=== PATIENT | male | born 2005 | race Caucasian/White ===

== ENCOUNTER 2024-03-23 19:47 | Emergency (ER) | payer BC, MEDICAID ==
[2024-03-23 20:09] LABS: BASOPHILS ABSOLUTE AUTO 0.03 10^3/uL (0.00-0.50); BASOPHILS PERCENT AUTO 0.3 % (0-1); HEMATOCRIT 42.6 % (42.0-52.0); HEMOGLOBIN 15.1 g/dL (14.0-18.0); IMMATURE GRAN ABSOLUTE AUTO 0.02 10^3/uL (0.00-0.49); IMMATURE GRAN PERCENT AUTO 0.2 % (0.0-4.9); LYMPHOCYTES ABSOLUTE AUTO 2.03 10^3/uL (0.60-5.00); LYMPHOCYTES PERCENT AUTO 18.9 % (24-44); MEAN CORPUSCULAR HEMOGLOBIN 31.2 pg (27.0-32.0); MEAN CORPUSCULAR HGB CONC 35.4 g/dL (32.0-36.0); MONOCYTES ABSOLUTE AUTO 0.79 10^3/uL (0.00-1.50); MONOCYTES PERCENT AUTO 7.3 % (0-10); NEUTROPHILS ABSOLUTE AUTO 7.89 x10^3/uL (1.80-8.00); NEUTROPHILS PERCENT AUTO 73.3 % (41-71); PLATELET COUNT,PLT 320 10^3/uL (150-400); RED BLOOD CELL COUNT 4.84 x10^6/uL (4.50-6.00); WHITE BLOOD CELL COUNT,WBC 10.8 10^3/uL (4.0-11.0)
[2024-03-23 20:27] LABS: BILIRUBIN TOTAL 0.6 mg/dL (0.0-1.0); CALCIUM 9.9 mg/dL (8.4-10.1); CREATININE 1.1 mg/dL (0.7-1.3); EST CRCL DRUG DOSING (CG) 83.16 mL/min; MAGNESIUM 2.1 mg/dL (1.8-2.4); POTASSIUM,K 3.5 mEq/L (3.5-5.0); PROTEIN TOTAL,TP 8.4 g/dL (6.4-8.2)
[2024-03-23 20:35] VITALS: BP 131/81; PULSE 84
== END 2024-03-23 20:45 | disposition home or self-care (01) ==
LOC: CC.ED 19:47
DX: M94.0 Chondrocostal junction syndrome [Tietze] (principal)
CPT/HCPCS: 36415; 71046; 80053; 83735; 84484; 85025; 87428-QW; 93005; 93010; 99284; 99285